=== PATIENT | female | born 1945 | race Caucasian/White ===

== ENCOUNTER 2017-09-19 06:18 | Day surgery (SDC) | payer OTHER, BC ==
[2017-09-15 09:37] VITALS: BMI 18.0
[2017-09-19] MEDS ORDERED: ERYTHROMYCIN 0.5% OPHTHALMIC OINTMENT 3.5 GM TUBE ONE (07:19)
[2017-09-19] MEDS ORDERED: POVIDONE-IODINE 5% OPHTHALMIC PREP 30 ML SOLUTION ONE (07:20)
[2017-09-19] MEDS ORDERED: BUPIVACAINE HCL/PF 0.5% (5MG/ML) 10 ML VIAL ONE (07:20)
[2017-09-19] MEDS ORDERED: LIDOCAINE 1%/EPI 1:100000 (20 ML MULTI DOSE VIAL) ONE (07:20)
[2017-09-19] MEDS ORDERED: MIDAZOLAM HCL 2 MG/2 ML SINGLE DOSE VIAL ONE (07:48)
[2017-09-19] MEDS ORDERED: PROPOFOL 20 ML ONE ×5 (07:48→08:22)
[2017-09-19] MEDS ORDERED: TETRACAINE 0.5% OPHTH SOLN 2 ML BOTTLE ONE (07:52)
[2017-09-19] MEDS ORDERED: DEXAMETHASONE SOD PHOSPHATE 4 MG/1 ML VIAL ONE (07:59)
[2017-09-19] MEDS ORDERED: ONDANSETRON 4 MG/2 ML VIAL ONE (07:59)
[2017-09-19] MEDS ORDERED: ceFAZolin SODIUM 1 GM VIAL ONE (07:59)
[2017-09-19] MEDS ORDERED: SUCCINYLCHOLINE CHLORIDE 200 MG/10 ML VIAL ONE (08:23)
[2017-09-19] MEDS ORDERED: oxyCODONE HCL 5 MG TABLET PO PRN (08:32)
[2017-09-19] MEDS ORDERED: ONDANSETRON 4 MG/2 ML VIAL IVPUSH PRN (08:32)
[2017-09-19] MEDS ORDERED: LACTATED RINGERS SOLUTION 1,000 ML IV SCH (08:45)
[2017-09-19 09:38] VITALS: TEMP 97.4
[2017-09-19] MEDS ORDERED: oxyCODONE HCL 5 MG TABLET ONE (09:43)
[2017-09-19 10:35] VITALS: BP 110/68; PULSE 66
--- NOTE | 2017-09-19 12:47 | OP ---
DATE OF OPERATION: 09/19/2017 PREOPERATIVE DIAGNOSIS: Chronic ocular irritation, left, with a full-length inferior conjunctivochalasis, greatest laterally, and a cystic lesion, nasal left upper lid. POSTOPERATIVE DIAGNOSIS: Chronic ocular irritation, left, with a full-length inferior conjunctivochalasis, greatest laterally, and a cystic lesion, nasal left upper lid. PROCEDURES: 1. Examination under anesthesia. 2. Excision of conjunctivochalasis and thermal cautery of conjunctivochalasis, laterally, left inferior fornix. 3. Excision of cystic lesion, nasal left upper lid. SURGEON: Bhavna Limon MD ANESTHESIA: Local with sedation. COMPLICATONS: None. ESTIMATED BLOOD LOSS: 0.25 mL. OPERATION REPORT: Patient was brought to the operating room, placed on the operating room table. Vital signs monitored by Anesthesia. Tetracaine was placed in both eyes. A time-out was performed, and then 1% Xylocaine and 1:100,000 epinephrine was injected for 0.5 mL in the nasal left upper lid. Patient was prepped and draped in the usual sterile fashion, exposing both eyes. A lid speculum was placed in the left eye. The right eye was closed manually and this was elevated. The speculum was used to elevate the eyelid away from the globe. The conjunctiva was examined and seemed to be most redundant temporally. It was marked with a marking pen. Subconjunctival injection of 1% Xylocaine and 1:100,000 epinephrine was done in the inferior fornix with 0.5 to 0.75 mL. In the matter of redundant conjunctiva, this had been estimated preoperatively. With smooth forceps, it was now excised with Tiffani scissors. More was excised temporally as this was the greatest area of redundancy. Then, bipolar cautery was used with a Desmarres retractor helping us elevate the eyelid to anastomose the two ends of the conjunctiva with bipolar cautery and also to cause some femoral shrinkage temporally in the conjunctiva. This completed the conjunctivoplasty and correction of conjunctivochalasis of the lid. Attention was then turned to the left upper lid, and the left upper lid nasal cyst was now incised, with an 11 blade, and then the base of the lesion was excised with the Tiffani scissors and submitted for pathologic study. was placed on the left upper lid and in the left eye. The speculum was removed and the patient was taken to the recovery room in stable condition. BHAVNA LIMON M.D. MARITA/[id number]
--- NOTE | 2017-09-20 16:34 | PATH ---
Surgical Pathology Report Patient Name: JORGE RODRIGUEZ [facility]. Rec. #: [id number] /Age/Gender: 1945 (Age: 71) / F Account: [id number] Location: [facility] Taken: 09/19/2017 Received: 09/19/2017 Reported: 09/20/2017 Physicians: Jonathan Barajas Specimen(s) Received A: LEFT EYE CONJUNCTIVOCHALASIS B: LEFT UPPER EYELID CYST Clinical History Conjunctivochalasis left eye; excision nasal lesion, upper left lid Final Diagnosis A. EYE, LEFT, CONJUNCTIVOCHALASIS, EXCISION: CONJUNCTIVAL MUCOSA WITH MILD TO MODERATE CHRONIC INFLAMMATION, VASCULAR CONGESTION, AND SMALL CONJUNCTIVAL CYST. B. UPPER EYELID, LEFT, CYST, EXCISION: CONJUNCTIVAL (INCLUSION) CYST. Electronically Signed Catie Shell M.D. Gross Description A. Received in formalin, labeled "left eye conjunctivochalasis" are 2tan, irregular portions of soft tissue measuring 0.2 and 1cm cm. in greatest length and 0.1cm in diameter. The specimens are submitted in toto in one cassette. B. Received in formalin, labeled "left upper eyelid cyst" is a martin, irregular portions of soft tissue measuring 0.1 cm. in greatest dimension. The specimens are submitted in toto in one cassette. YOEL/09/19/2017 darrion/09/19/2017
== END 2017-09-19 10:25 | disposition home or self-care (01) ==
LOC: FASU 06:18
PROVIDERS: ATTEND Ophthalmology
PROC: 08BP0ZZ Excision of Left Upper Eyelid, Open Approach (ICD-10-PCS; principal; 2017-09-19 08:02)
DX: D31.02 Benign neoplasm of left conjunctiva (principal); H11.822 Conjunctivochalasis, left eye
CPT/HCPCS: 88304-TC; 94760